=== PATIENT | male | born 1955 | race Caucasian/White ===

== ENCOUNTER → 2018-07-12 | Outpatient (CLI) | payer BC ==
--- NOTE | 2018-07-12 17:28 | MR ---
EXAMINATION TYPE: MR shoulder RT wo con DATE OF EXAM: 07/12/2018 COMPARISON: Plain film 06/19/2018 HISTORY: Rt shoulder pain x 3 mos, no trauma TECHNIQUE: Multiplanar, multisequence imaging of the right shoulder is performed without contrast. FINDINGS: There is motion on the exam. Rotator Cuff: Undersurface shows some increased signal at the insertion of the supraspinatus, difficu lt to exclude a partial thickness tear. Increased signal within the rotator cuff tendon is compatible with tendinosis, there is fluid signal in the subacromial subdeltoid bursa Acromioclavicular Joint: Arthropathy at the acromioclavicular joint causes some mass effect on the mu sculotendinous junction of supraspinatus. Suspect distal acromial spur may be present. Glenohumeral Joint: There is fluid signal noted extending inferior to the expected location to the in ferior glenohumeral ligament, findings may represent humeral avulsion of the glenohumeral ligament al though there is no history of trauma. Some intermediate signal present within the fluid in the caudal aspect may represent some internal debris. There is some arthropathy change, hypertrophic change at the glenohumeral joint. Labrum: Superior labrum shows some abnormal increased signal extending anteriorly, consider underlyin g SLAP lesion, difficult to exclude labral tear Biceps Tendon: The long head of biceps is in normal location within bicipital groove, fluid signal is present along the biceps tendon. Bone marrow signal: No focal abnormal marrow signal is appreciated. Other: Fluid signal noted in the subacromial coracoid location. There is a joint effusion. IMPRESSION: There is some motion on the exam. No dexter rotator cuff tear is present, correlate for possible impin gement. Possible angle deformity, SLAP lesion.
== END | disposition home or self-care (01) ==
LOC: RADMRIMAIN 15:07
PROVIDERS: ATTEND Orthopaedic Surgery
DX: M25.511 Pain in right shoulder (principal)

== ENCOUNTER → 2018-09-28 | Outpatient (CLI) | payer BC ==
[2018-09-28 12:07] LABS: Basophils % (A) 0 %; Eosinophils # (A) 0.1 k/uL (0-0.7); Eosinophils % (A) 1 %; HCT 45.9 % (39.0-53.0); HGB 15.6 gm/dL (13.0-17.5); Lymphocytes # (A) 1.7 k/uL (1.0-4.8); Lymphocytes % (A) 37 %; MCH 32.5 pg (25.0-35.0); MCHC 34.1 g/dL (31.0-37.0); MCV 95.3 fL (80.0-100.0); Mean Platelet Volume 7.9; Monocytes # (A) 0.3 k/uL (0-1.0); Monocytes % (A) 6 %; Neutrophils # (A) 2.5 k/uL (1.3-7.7); Neutrophils % (A) 53 %; Platelet Count 193 k/uL (150-450); RBC 4.82 m/uL (4.30-5.90); RDW 13.2 % (11.5-15.5); WBC 4.7 k/uL (3.8-10.6)
[2018-09-28 12:24] LABS: Potassium 4.5 mmol/L (3.5-5.1)
== END | disposition home or self-care (01) ==
LOC: LABPAT 10:54
PROVIDERS: ATTEND Orthopaedic Surgery
DX: Z01.812 Encounter for preprocedural laboratory examination (principal); M75.41 Impingement syndrome of right shoulder
CPT/HCPCS: 36415; 80051; 85025; 93005

== ENCOUNTER → 2018-10-02 | Day surgery (SDC) | payer BC ==
[2018-09-27 11:42] VITALS: BMI 24.7
--- NOTE | 2018-10-01 14:09 | HP ---
HISTORY AND PHYSICAL DATE OF SERVICE: 10/02/2018. Omero Sandoval is a 63-year-old patient seen with progressive right shoulder pain. We discussed options. He elected to proceed with arthroscopy. Consent was obtained. PAST MEDICAL HISTORY: Hyperlipidemia. PAST SURGICAL HISTORY: Noncontributory. MEDICATIONS: Unknown. ALLERGIES: KEFLEX. SOCIAL HISTORY: Denies tobacco use. PHYSICAL EVALUATION OF THE RIGHT SHOULDER: Flexion is 160 degrees, abduction is 150 degrees, external rotation 60 degrees with weakness. There is tenderness along the anterior lateral acromion rotator cuff insertion site. Impingement sign is positive at 90 degrees. Distal neurovascular exam is intact. RADIOGRAPHS RIGHT SHOULDER: Revealed a type 2 anterior acromion, evidence for acromioclavicular osteoarthritis and cystic changes of the greater tuberosity. An MRI of the right shoulder revealed a partial rotator cuff tear, impingement and acromioclavicular joint osteoarthritis. IMPRESSION: 1. Right shoulder impingement with rotator cuff tear. 2. Right shoulder acromioclavicular joint osteoarthritis. 3. Hyperlipidemia. PLAN: Right shoulder arthroscopy with subacromial decompression, possible arthroscopic rotator cuff repair and debridement. MMODL / IJN: [id number] /
[~2018-10-02] MED LIST: DEXAMETHASONE SOD PHOSPHATE 10 MG/ML 1 ML VIAL IV ONE; HYDROmorphone 0.5 MG/0.5 ML SYRINGE IVP PRN; LACTATED RINGERS 1,000 ML IV ONE; LACTATED RINGERS 1,000 ML IV SCH; LIDOCAINE 1% 20 ML VIAL (10MG/ML) FOR IV START INTRADERMA PRN; LIDOCAINE 1% INJ 10MG/ML (20 ML MDV) ONE; MIDAZOLAM (PF) 2 MG/2 ML VIAL IV PRN; MIDAZOLAM 2 MG/2 ML VIAL ONE; ONDANSETRON 4 MG/2 ML VIAL IVP ONE; PROPOFOL 10 MG/ML 20 ML VIAL IV ONE; ROPIVACAINE 5 MG/ML 30 ML VIAL ONE; SCOPOLAMINE 1.5MG/72HR PATCH TRANSDERM ONE; SUCCINYLCHOLINE CHLORIDE 100 MG/5 ML SYR IV ONE; ePHEDrine SULFATE/0.9% NACL/PF 50 MG/5 ML SYRINGE IV ONE; fentaNYL (PF) 50 MCG/ML 2 ML AMP ONE
[2018-10-02 08:47] VITALS: RESP 16; TEMP 97.6
[2018-10-02] MEDS: CLINDAMYCIN 900 MG in DEXTROSE 5% IN WATER 50 ML IVPB ONE ×4 (10:17→10:20)
--- NOTE | 2018-10-02 11:29 | P.OP ---
Date of Procedure: 10/02/18 Preoperative Diagnosis: Right shoulder impingement Postoperative Diagnosis: 1. Right shoulder impingement 2. Right shoulder acromioclavicular joint osteoarthritis 3. 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 Right shoulder partial long head biceps tendon tear Procedure(s) Performed: 1. Right shoulder arthroscopic subacromial decompression 2. Right shoulder arthroscopic Buddy procedure 3. Right shoulder arthroscopic microfracture humeral head 4. Right shoulder arthroscopic biceps tenotomy Implants: None Anesthesia: GETA, regional (Interscalene block) Surgeon: Rodrigo Rowley Estimated Blood Loss (ml): 5 Pathology: none sent Condition: stable Disposition: PACU Indications for Procedure: 63-year-old patient seen with progressive right shoulder pain. After having treatment options discussed, he elected to proceed with arthroscopy. Operative Findings: see description of procedure Description of Procedure: Patient underwent an interscalene block by department of anesthesia. The patient was then taken to the operative suite. The patient underwent a general anesthetic by the department of anesthesia. The patient was placed into a lateral position and secured. There was appropriate padding of the bony prominence. Right shoulder was then prepped and draped in normal sterile orthopedic fashion. We placed the extremity in 10 pounds of longitudinal traction. A posterior incision was now made for a posterior working portal site. The trocar and cannula were inserted into the glenohumeral joint. Arthroscopy was initiated. Spinal needle was now inserted anteriorly, to ascertain the anterior working portal site. An incision was now made in that area, a trocar was inserted followed by a probe. There was a large area of grade 4 chondromalacia of the humeral head measuring approximately 2.5 x 2.5 cm. There were some peripheral osteochondral tears present. There was some superficial tearing of the anterior labrum. There was partial tearing long head biceps tendon was some hyperemia. There was grade 1 chondromalacia of the glenoid fossa with no osteochondral tears. I debrided the superficial osteochondral tears down to stable tissue as well as debriding out the superficial labral tear. I performed an arthroscopic biceps tenotomy. I decided post with microfracture to the humeral head. 3 different areas of microfracture performed penetrating the bone with resultant bleeding of the bone with a microfracture sites. The residual area was stable. Instruments were now removed from the glenohumeral joint. Utilizing the posterior working portal site, the trocar and cannula were inserted into the subacromial space. Arthroscopy initiated. I made an incision 2 fingerbreadths lateral to the acromion. I introduced my trocar followed by my [employer] ablator. I now began ablating thick subacromial bursal tissue, which exposed the undersurface of the anterior acromion. There was diminished subacromial space. There was a very prominent anterior acromion. A motorized bur was introduced and a subacromial decompression was performed. I also excised some osteophytes off the inferior aspect of the distal clavicle. The AC joint was visualized and noted to be fairly arthritic. The motorized bur was introduced in the anterior portal site and a Buddy procedure was performed without difficulty, decompressing the AC joint nicely. I turned my attention to the rotator cuff tendon. There was some mild superficial fraying which I debrided out with a motorized shaver. I thoroughly probed the entire tendon area and there was no evidence for any perforation or tear. I injected 1 mL renue intra-articular. Instruments now removed from the portal sites. All portal sites were approximated with nylon suture. Sterile dressings were applied followed by a shoulder sling. The patient was awakened, transferred to a bed, and taken to recovery in stable condition.
[2018-10-02 12:31] VITALS: BP 127/78; PULSE 92
--- NOTE | 2018-10-02 14:18 | P.ONQ ---
Anesthesiology Proc Note - PNB - Peripheral Nerve Block Performed Right Interscalene Single Time Out Performed: Yes Procedure Start Time: : Procedure Stop Time: : Indication: Acute Post-Operative Pain, Requested by physician Sedation Type: Sedate with meaningful contact maintained Preparation: Sterile Prep Position: Supine Needle Size: 50mm (2") Needle Gauge: 21 Technique: Ultrasound Injectate: 0.5% Ropivacaine (see comment for volume) (ropi .5% 30cc) Blood Aspirated: No Pain Paresthesia on Injection Noted: No Resistance on Injection: Normal Events: Uneventful and Well Tolerated
== END | disposition home or self-care (01) ==
LOC: OR 07:37
PROVIDERS: ATTEND Orthopaedic Surgery
DX: M75.41 Impingement syndrome of right shoulder (principal); M19.011 Primary osteoarthritis, right shoulder; M25.711 Osteophyte, right shoulder; M94.211 Chondromalacia, right shoulder; S43.431A Superior glenoid labrum lesion of right shoulder, initial encounter; S46.111A Strain of muscle, fascia and tendon of long head of biceps, right arm, initial encounter; X58.XXXA Exposure to other specified factors, initial encounter; E78.5 Hyperlipidemia, unspecified; Z88.1 Allergy status to other antibiotic agents; Z79.899 Other long term (current) drug therapy
CPT/HCPCS: 64415; 29823; 29824; C1765; J2250 ×2; J1100; J2405; J2001; J3010; J2795; J0330; J2704

== ENCOUNTER → 2024-01-02 | Outpatient (CLI) | payer MEDICARE ==
--- NOTE | 2024-01-02 14:26 | CT ---
EXAMINATION TYPE: CT chest wo con DATE OF EXAM: 01/02/2024 COMPARISON: None HISTORY: lung nodule CT DLP: 477 mGycm, Automated exposure control for dose reduction was used. CONTRAST: None TECHNIQUE: Axial images were obtained at 5 mm thick sections. Reconstructed images are reviewed on [employer] computer in the coronal plane. FINDINGS: Portion of the thyroid visualized is normal. No suspicious lung nodules or focal infiltrates are present. No enlarged mediastinal or hilar adenopathy is evident. The ascending aorta diameter at the level o f the main pulmonary artery is 3.2 cm. The main pulmonary artery diameter at the bifurcation is 2.[address] sections are obtained through the upper abdomen. Abdomen is essentially unremarkable. IMPRESSION: 1. No suspicious lung nodules. 2. No acute abnormality.
== END | disposition home or self-care (01) ==
LOC: RADCTMAIN 11:49
PROVIDERS: ATTEND Family Medicine
DX: R93.89 Abnormal findings on diagnostic imaging of other specified body structures (principal)
CPT/HCPCS: 71250